=== PATIENT | female | born 1960 | race Caucasian/White ===

== ENCOUNTER → 2016-11-01 | Outpatient (CLI) | payer BC ==
--- NOTE | 2016-11-01 14:42 | MAMMOGRAPHY REPORT ---
UNILATERAL RIGHT DIGITAL SCREENING MAMMOGRAM TOMOSYNTHESIS WITH CAD: 11/01/2016 CLINICAL HISTORY: Asymptomatic. Personal history of breast cancer. TECHNIQUE: Right breast tomosynthesis in addition to standard 2D mammography was performed. Current study was also evaluated with a Computer Aided Detection (CAD) system. COMPARISON: Comparison is made to exams dated: 09/10/2015 mammogram, 09/09/2014 mammogram, 09/09/2013 mammogram, 09/05/2013 mammogram, 08/30/2012 mammogram, and 08/23/2011 mammogram - [facility] enter. BREAST COMPOSITION: There are scattered areas of fibroglandular density in the right breast. FINDINGS: Again seen are 2 adjacent oval circumscribed masses in the 12:00 to 1:00 right breast. Th e larger oval mass measures 9.9 mm in maximum dimension, and the smaller mass measures 7.3 mm in max imum dimension. Given slight differences in positioning, the sizes do not appear significant change d comparing to the 09/10/2015 mammograms. These masses were previously aspirated to resolution and proven to represent cysts, and this most likely represents reaccumulation of those cysts. A few oth er smaller oval circumscribed masses are scattered in the right breast, compatible with fibrocystic changes. No suspicious spiculated or irregular mass, architectural distortion or cluster of suspici ous microcalcifications is seen. IMPRESSION: ACR BI-RADS CATEGORY 2: BENIGN There is no mammographic evidence of malignancy. A 1 year screening mammogram is recommended. The p atient will receive written notification of the results. Approximately 10% of breast cancers are not detected with mammography. A negative mammographic repor t should not delay biopsy if a clinically suggestive mass is present. Yamila Garcia M.D. ay/:11/01/2016 09:28:06 Paradichlorobenzene Tender: Tiffani TAO(Tita)(M), [facility] letter sent: Normal 1/2 BI-RADS Code: ACR BI-RADS Category 2: Benign
== END | disposition home or self-care (01) ==
LOC: C.MAMM 08:40
PROVIDERS: ATTEND Physician Assistant
DX: Z12.31 Encounter for screening mammogram for malignant neoplasm of breast (principal); Z90.12 Acquired absence of left breast and nipple

== ENCOUNTER → 2017-11-29 | Outpatient (CLI) | payer OTHER ==
--- NOTE | 2017-11-30 14:20 | MAMMOGRAPHY REPORT ---
UNILATERAL RIGHT DIGITAL SCREENING MAMMOGRAM TOMOSYNTHESIS WITH CAD: 11/29/2017 CLINICAL HISTORY: Asymptomatic. Personal history of breast cancer. TECHNIQUE: Breast tomosynthesis in addition to standard 2D mammography was performed. Current study was also evaluated with a Computer Aided Detection (CAD) system. COMPARISON: Comparison is made to exams dated: 11/01/2016 mammogram, 09/24/2015 aspiration, 09/16/2015 u ltrasound, 09/10/2015 mammogram, 09/09/2014 mammogram, and 09/09/2013 mammogram - [facility] [place]. BREAST COMPOSITION: There are scattered areas of fibroglandular density in the right breast. FINDINGS: No suspicious masses, calcifications, or areas of architectural distortion are noted in th e right breast. There has been no significant interval change compared to prior exams. 2 adjacent b enign-appearing masses in the right superior breast at approximately 12 to 1:00 are not significantly changed, and were previously aspirated and shown to represent cysts. IMPRESSION: ACR BI-RADS CATEGORY 2: BENIGN There is no mammographic evidence of malignancy in the right breast. A 1 year screening mammogram is recommended. The patient will receive written notification of the results. Approximately 10% of breast cancers are not detected with mammography. A negative mammographic report should not delay biopsy if a clinically suggestive mass is present. Makeda Correa M.D. ah/:11/29/2017 14:44:47 Pearl Diver: Denise BACA)([place]ade[place]), [facility] letter sent: Normal 1/2 BI-RADS Code: ACR BI-RADS Category 2: Benign
== END | disposition home or self-care (01) ==
LOC: C.MAMM 13:46
PROVIDERS: ATTEND Physician Assistant
DX: Z12.31 Encounter for screening mammogram for malignant neoplasm of breast (principal); Z85.3 Personal history of malignant neoplasm of breast; Z90.12 Acquired absence of left breast and nipple